=== PATIENT | female | born 1985 ===

== ENCOUNTER 2017-01-26 07:26 | Emergency (ER) | payer MEDICAID ==
[2017-01-26 07:30] VITALS: BMI 26.9
[2017-01-26] MEDS ORDERED: Sodium Chloride 0.9% 1,000 ML IV ONE (07:43)
--- NOTE | 2017-01-26 08:19 | C.PDOC ---
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 Patient contributes symptoms to eating a baked potato with chicken. She notes tactile fever. Patient denies sick contacts, recent travel, vaginal bleeding, discharge, or urinary symptoms. Time Seen by Provider: 01/26/17 07:39 Chief Complaint (Nursing): Abdominal Pain History Per: Patient History/Exam Limitations: no limitations Onset/Duration Of Symptoms: Hrs (6 hrs ) Current Symptoms Are (Timing): Still Present Location Of Pain/Discomfort: Epigastric Radiation Of Pain To:: None Quality Of Discomfort: "Pain" Associated Symptoms: Fever, Vomiting, Diarrhea. denies: Chills Exacerbating Factors: None Alleviating Factors: None Last Bowel Movement: Today Recent travel outside of the [place]: No Abnormal Vaginal Bleeding: No Past Medical History Reviewed: Historical Data, Nursing Documentation, Vital Signs Vital Signs: Last Vital Signs Temp 98.7 F 01/26/17 12:51 Pulse 90 01/26/17 12:51 Resp 16 01/26/17 12:51 BP 116/79 01/26/17 12:51 Pulse Ox 100 01/26/17 12:51 Family History: States: Unknown Family Hx - Social History Hx Alcohol Use: Yes Hx Substance Use: No - Immunization History Hx Tetanus Toxoid Vaccination: No Hx Influenza Vaccination: No Hx Pneumococcal Vaccination: No Review Of Systems Constitutional: Positive for: Fever. Negative for: Chills Cardiovascular: Negative for: Chest Pain, Palpitations Respiratory: Negative for: Cough, Shortness of Breath Gastrointestinal: Positive for: Vomiting, Abdominal Pain, Diarrhea Genitourinary: Negative for: Vaginal Discharge, Vaginal Bleeding Musculoskeletal: Negative for: Back Pain Physical Exam - Physical Exam Appears: Non-toxic, No Acute Distress Skin: Warm, Dry, No Rash Head: Atraumatic, Normacephalic, No Tenderness Eye(s): bilateral: Normal Inspection, PERRL, EOMI Oral Mucosa: Moist Neck: Supple Chest: Symmetrical, No Deformity Cardiovascular: Rhythm Regular, No Murmur Respiratory: No Rales, No Rhonchi, No Wheezing, Other (clear to auscultation bilaterally ) Gastrointestinal/Abdominal: Bowel Sounds (positive bowel sounds ), Soft, Tenderness (epigastric tenderness ), No Distention, No Guarding, No Rebound Back: No CVA Tenderness Extremity: Normal ROM, No Tenderness Neurological/Psych: Oriented x3 ED Course And Treatment - Laboratory Results Result Diagrams: 01/26/17 08:27 01/26/17 08:27 O2 Sat by Pulse Oximetry: 98 (RA) Pulse Ox Interpretation: Normal - Other Rad Abdomen Obstructive Series X-Ray: Viewed By Me, Read By Radiologist Interpretation: FINDINGS: CHEST: Lungs: Clear. Cardiovascular: Normal size heart. No pulmonary vascular congestion. Pleura: No pleural fluid. No pneumothorax. Other findings: None. ABDOMEN AND PELVIS: Bowel: Unremarkable bowel gas pattern. No evidence of mechanical obstruction. Free air: None. Bones: Unremarkable. Other findings: Intrauterine contraceptive device (IUD) identified. IMPRESSION: Unremarkable radiographs of chest and abdomen. No evidence of mechanical bowel obstruction. - CT Scan/US CT Abdomen and Pelvis with oral and IV contrast Other Rad Studies (CT/US): Read By Radiologist, Radiology Report Reviewed CT/US Interpretation: FINDINGS: LOWER THORAX: No visible consolidation, pleural effusion, or pneumothorax. LIVER: Unremarkable. GALLBLADDER AND BILE DUCTS: Unremarkable. PANCREAS: Unremarkable. SPLEEN: Unremarkable. ADRENALS: Unremarkable. KIDNEYS AND URETERS: The kidneys enhance symmetrically. No hydronephrosis or obstructing renal calculus. 3 mm too small to characterize right renal hypodensity ; statistically likely a cyst. BLADDER : Minimal stranding near the anterior urinary bladder, nonspecific. The urinary bladder appears otherwise unremarkable. REPRODUCTIVE: Uterus is present. IUD. APPENDIX: The appendix appears within normal limits of caliber. No secondary signs of acute appendicitis. BOWEL: The stomach is nondistended. The bowel loops appear within normal limits of caliber without evidence of intestinal obstruction. Diverticulosis. Wall thickening of the left colon likely exaggerated by under distension. Diverticulitis cannot be entirely excluded. Correlate clinically. PERITONEUM: No significant free fluid. No definite free air. LYMPH NODES: No bulky lymphadenopathy identified. VASCULATURE: No aortic aneurysm. BONES: No acute osseous abnormality is detected. OTHER FINDINGS: None. IMPRESSION: Diverticulosis. Wall thickening of the left colon likely exaggerated by under distension. Diverticulitis cannot be entirely excluded. Correlate clinically. Minimal stranding near the anterior urinary bladder, nonspecific. Urinary bladder appears otherwise unremarkable. Recommend clinical correlation including urinalysis. 3 mm too small to characterize right renal hypodensity ; statistically likely a cyst. IUD. Progress Note: Blood work, labs, and abdominal obstructive series was ordered. Patient was given Pepcid, Toradol, Zofran, and IV fluids. Abdomen CT was ordered. Medical Decision Making Medical Decision Making: Assessment: Abdominal pain Disposition Counseled Patient/Family Regarding: Studies Performed, Diagnosis, Need For Followup, Rx Given - Disposition Referrals: [facility] [Outside] [facility] [Outside] Disposition: HOME/ ROUTINE Disposition Time: 12:38 Condition: IMPROVED Additional Instructions: follow up with your doctor or medical clinic in 2 days call to make an appointment take medications as prescribed return to hospital if symptoms worsens or progress Prescriptions: Ciprofloxacin HCl [Cipro] 500 mg PO BID #20 tab Famotidine [Pepcid] 20 mg PO BID #20 tab Metronidazole [Flagyl] 500 mg PO BID #20 tablet Naproxen [Naprosyn] 500 mg PO BID PRN #16 tab PRN Reason: Pain, Moderate (4-7) traMADol [Ultram] 50 mg PO TID PRN #8 tab PRN Reason: Pain, Moderate (4-7) Instructions: Abdominal Pain (ED) Forms: General Discharge Instructions, [facility] (Irish), Work Excuse - Clinical Impression Clinical Impression: Abdominal pain, Vomiting, Diarrhea - Scribe Statement The provider has reviewed the documentation as recorded by the Scribpetty Rodgers All medical record entries made by the Smithaibpetty were at my direction and personally dictated by me. I have reviewed the chart and agree that the record accurately reflects my personal performance of the history, physical exam, medical decision making, and the department course for this patient. I have also personally directed, reviewed, and agree with the discharge instructions and disposition.
[2017-01-26 08:36] LABS: BASO % 0.5 % (0.0-2.0); EOS # 0.1 K/uL (0.0-0.7); EOS % 0.8 % (0.0-4.0); HEMATOCRIT 41.1 % (34.0-47.0); LYMPH # 0.4 K/uL (1.0-4.3); LYMPH % 4.8 % (20.0-40.0); MEAN CELL VOLUME 89.4 fL (81.0-99.0); MEAN CORPUSCULAR HEMOGLOBIN 30.4 pg (27.0-31.0); MEAN PLATELET VOLUME 8.3 fL (7.2-11.7); MONO # 0.4 K/uL (0.0-0.8); MONO % 5.1 % (0.0-10.0); PLATELET COUNT 323 K/uL (130-400); RED CELL DISTRIBUTION WIDTH 14.1 % (11.5-14.5); WHITE BLOOD COUNT 7.7 K/uL (4.8-10.8)
[2017-01-26 08:39] LABS: RBC URINE 2 /hpf (0-3); URINE BILIRUBIN NEGATIVE (NEGATIVE); URINE BLOOD NEGATIVE (NEGATIVE); URINE COLOR Yellow (YELLOW); URINE GLUCOSE (UA) NORMAL (Normal); URINE KETONE NEGATIVE (NEGATIVE); URINE LEUKOCYTE ESTERASE TRACE Leu/uL (Negative); URINE PROTEIN 1+ mg/dL (NEGATIVE); URINE UROBILINOGEN NORMAL mg/dL (0.2-1.0); WBC URINE 5 /hpf (0-5)
[2017-01-26 08:44] LABS: CHLORIDE 103 mmol/L (98-107)
[2017-01-26 08:45] LABS: POTASSIUM 3.5 mmol/L (3.6-5.2); SODIUM 139 mmol/L (132-148)
[2017-01-26 08:47] LABS: ALB/GLOB RATIO 1.3 (1.0-2.1); ALKALINE PHOSPHATASE 55 U/L (38-126); AST/SGOT 26 U/L (14-36); BILIRUBIN,TOTAL 1.2 mg/dL (0.2-1.3); BLOOD UREA NITROGEN 20 mg/dL (7-17); CARBON DIOXIDE 23 mmol/L (22-30); GFR AFRICAN-AMERICAN > 60; TOTAL PROTEIN 8.1 g/dL (6.3-8.3)
[2017-01-26 08:48] LABS: ALT/SGPT 44 U/L (9-52); CALCIUM 8.6 mg/dl (8.6-10.4); GLUCOSE,RANDOM 103 mg/dL (65-105)
[2017-01-26 08:50] VITALS: RESP 16
[2017-01-26 09:28] LABS: NEUTROPHIL 79 % (50-75); TOTAL CELLS COUNTED 100
[2017-01-26] MEDS ORDERED: Iohexol 240 (50 ml) PO ONE (09:49)
[2017-01-26] MEDS ORDERED: Iohexol 240 (50 ml) ONE (09:52)
--- NOTE | 2017-01-26 10:48 | RAD ---
PROCEDURE: Radiographs of the chest and abdomen (obstructive series) HISTORY: abd pain COMPARISON: No prior. TECHNIQUE: AP radiograph of the chest, with upright and supine radiographs of the abdomen. FINDINGS: CHEST: Lungs: Clear. Cardiovascular: Normal size heart. No pulmonary vascular congestion. Pleura: No pleural fluid. No pneumothorax. Other findings: None. ABDOMEN AND PELVIS: Bowel: Unremarkable bowel gas pattern. No evidence of mechanical obstruction. Free air: None. Bones: Unremarkable. Other findings: Intrauterine contraceptive device (IUD) identified IMPRESSION: Unremarkable radiographs of chest and abdomen. No evidence of mechanical bowel obstruction.
[2017-01-26] MEDS ORDERED: Iohexol 350mg/ml 100 ML ONE (11:11)
--- NOTE | 2017-01-26 12:08 | CT ---
PROCEDURE: CT Abdomen and Pelvis with oral and IV contrast. HISTORY: abdominal pain COMPARISON: Obstructive series performed 01/26/17. TECHNIQUE: Contiguous axial images of the abdomen and pelvis. Oral and IV contrast was administered. Coronal and Sagittal reformats generated and reviewed. Contrast dose: 100 mL Visipaque Radiation dose: Total exam DLP = 369.96 MGy-cm. This CT exam was performed using one or more of the following dose reduction techniques: Automated exposure control, adjustment of the mA and/or kV according to patient size, and/or use of iterative reconstruction technique. FINDINGS: LOWER THORAX: No visible consolidation, pleural effusion, or pneumothorax. LIVER: Unremarkable. GALLBLADDER AND BILE DUCTS: Unremarkable. PANCREAS: Unremarkable. SPLEEN: Unremarkable. ADRENALS: Unremarkable. KIDNEYS AND URETERS: The kidneys enhance symmetrically. No hydronephrosis or obstructing renal calculus. 3 mm too small to characterize right renal hypodensity ; statistically likely a cyst. BLADDER: Minimal stranding near the anterior urinary bladder, nonspecific. The urinary bladder appears otherwise unremarkable. REPRODUCTIVE: Uterus is present. IUD. APPENDIX: The appendix appears within normal limits of caliber. No secondary signs of acute appendicitis. BOWEL: The stomach is nondistended. The bowel loops appear within normal limits of caliber without evidence of intestinal obstruction. Diverticulosis. Wall thickening of the left colon likely exaggerated by under distension. Diverticulitis cannot be entirely excluded. Correlate clinically. PERITONEUM: No significant free fluid. No definite free air. LYMPH NODES: No bulky lymphadenopathy identified. VASCULATURE: No aortic aneurysm. BONES: No acute osseous abnormality is detected. OTHER FINDINGS: None. IMPRESSION: Diverticulosis. Wall thickening of the left colon likely exaggerated by under distension. Diverticulitis cannot be entirely excluded. Correlate clinically. Minimal stranding near the anterior urinary bladder, nonspecific. Urinary bladder appears otherwise unremarkable. Recommend clinical correlation including urinalysis. 3 mm too small to characterize right renal hypodensity ; statistically likely a cyst. IUD.
[2017-01-26 12:51] VITALS: BP 116/79; PULSE 90; TEMP 98.7
[2017-01-26 13:00] VITALS: O2SAT 98
== END 2017-01-26 13:00 | disposition home or self-care (01) ==
LOC: C.ER 07:26
DX: R10.13 Epigastric pain (principal); R11.10 Vomiting, unspecified; R19.7 Diarrhea, unspecified
CPT/HCPCS: 74022; 74177; 80053; 81001; 83690; 85025; 96361; 96374; 96375; 96376; 99285; J1885; J2405; J7040; Q9966; Q9967